=== PATIENT | female | born 1955 | race Caucasian/White ===

== ENCOUNTER 2021-03-28 13:32 | Emergency (ER) | payer OTHER ==
[~2021-03-28 13:32] MED LIST: ALTACE2.5 MG PO; ASPIRIN EC81 MG PO; AUGMENTIN 875-1 EACH PO; BASAGLAR K100 UNIT/1 SQ; BENTYL 20MG TAB20 MG PO; ECOTRIN81 MG PO; EFFEXOR XR75 MG PO; FLONASE 0.05% N16 GM; IMDUR ER TAB 3030 MG PO; IMDUR ER TAB 6060 MG PO; LEVOTHYROXINE100 MCG PO; LIPITOR TAB 2020 MG PO; LIPITOR40 MG PO; LOPRESSOR 25 MG25 MG PO; METOPROLOL PO; NEURONTIN 300300 MG PO; PANTOPRAZOLE SO40 MG PO; PLAVIX 75 MG TA75 MG PO; PROTONIX40 MG PO; RAMIPRIL2.5 MG PO; SYNTHROID100 MCG PO; TRAVATAN Z EYEBOTH; TRULICITY0.75 MG/0. SQ; TRULICITY1.5 MG/0.5 SQ; TYLENOL 325MG325 MG PO; ZOFRAN ODT 4 MG4 MG PO; ZYRTEC10 M3 PO
[2021-03-28 16:03] LABS: HEMOGLOBIN 14.3 gm/dl (12.3-15.3); RED BLOOD COUNT 4.89 M/UL (4.00-5.10); WHITE BLOOD COUNT 6.2 K/UL (4.5-11.0)
[2021-03-28 16:26] LABS: BUN/CREATININE RATIO 15 (0-10)
== END 2021-03-28 18:30 | disposition home or self-care (01) ==
LOC: ER1 13:32
PROVIDERS: Family Medicine
DX: U07.1 COVID-19 (principal); S09.90XA Unspecified injury of head, initial encounter; I25.2 Old myocardial infarction; E11.9 Type 2 diabetes mellitus without complications; E78.5 Hyperlipidemia, unspecified; I10 Essential (primary) hypertension; Z88.2 Allergy status to sulfonamides; M54.2 Cervicalgia; M50.30 Other cervical disc degeneration, unspecified cervical region; W19.XXXA Unspecified fall, initial encounter
CPT/HCPCS: 70450; 71045; 72125; 80053; 82550; 82553; 82962; 83605; 83874; 84484; 85025; 93005; 99284; U0002